=== PATIENT | female | born 1945 | race Caucasian/White ===

== ENCOUNTER 2018-05-07 11:11 | Inpatient (IN) | payer MEDICARE, OTHER ==
[~2018-05-07 11:11] MED LIST: MIDAZOLAM 1 MG/ML 2 ML INJ; NORepinephrine 8MG/250 ML BAG
[2018-05-07 11:44] LABS: ADD MAN DIFF? NO
[2018-05-07 11:48] LABS: WHITE BLOOD COUNT 3.2 10^3/ul (4.8-10.8)
[2018-05-07 11:48] LABS: ABNORMAL IP MESSAGE 1; BASOPHILS % 0.3 % (0.0-2.0); HEMATOCRIT 32.8 % (37.0-47.0); HEMOGLOBIN 11.1 g/dl (12.0-16.0); LYMPHOCYTES # 0.1 10^3/ul (0.8-2.9); LYMPHOCYTES % 2.8 % (15.0-51.0); MEAN CORPUSCULAR HEMOGLOBIN 30.2 pg (29.0-33.0); MEAN CORPUSCULAR HGB CONC 33.8 g/dl (32.0-37.0); MEAN CORPUSCULAR VOLUME 89.1 fl (82.0-101.0); MEAN PLATELET VOLUME 9.8 fl (7.4-10.4); MONOCYTES % 0.6 % (0.0-11.0); NEUTROPHIL # 2.4 10^3/ul (1.6-7.5); NEUTROPHILS % 75.7 % (39.0-77.0); PLATELET COUNT 130 10^3/UL (140-415); RED BLOOD COUNT 3.68 10^6/ul (4.20-5.40); RED CELL DISTRIBUTION WIDTH 14.6 % (11.5-14.5)
[2018-05-07 11:49] LABS: POSITIVE DIFF @See below
[2018-05-07] MEDS: SODIUM CHLORIDE 0.9% 1L BAG IV* (11:54)
[2018-05-07] MEDS: VANCOMYCIN 1 GM (PMX) 250 ML IVPB (11:55)
[2018-05-07 11:58] LABS: ADD UMIC YES; UR ASCORBIC ACID NEGATIVE (NEGATIVE); UR BACTERIA FEW /HPF (NONE SEEN); UR BILIRUBIN (Dip) NEGATIVE (NEGATIVE); UR BLOOD (Dip) 1+ mg/dL (NEGATIVE); UR CLARITY CLOUDY (CLEAR); UR COLOR AMBER (YELLOW); UR GLUCOSE (Dip) 3+ mg/dL (NEGATIVE); UR KETONES (Dip) TRACE mg/dL (NEGATIVE); UR LEUKOCYTE ESTERASE (Dip) 3+ Leu/ul (NEGATIVE); UR MUCUS FEW /HPF (NONE SEEN); UR NITRITE (Dip) NEGATIVE (NEGATIVE); UR NONSQUAMOUS EPITHELIAL CELL 1 /HPF (NONE SEEN); UR RBC 9 /HPF (0-5); UR TOTAL PROTEIN (Dip) 2+ mg/dl (NEGATIVE); UR UROBILINOGEN (Dip) NEGATIVE (NEGATIVE); UR WBC > 182 /HPF (0-5)
[2018-05-07 12:05] LABS: INR 1.22; PARTIAL THROMBOPLASTIN TIME 23.8 Sec (23.0-35.0); PROTIME 15.6 Sec (11.9-14.9); PT RATIO 1.2
[2018-05-07] MEDS: ONDANSETRON 4 MG INJ IV (12:06)
[2018-05-07] MEDS ORDERED: ACETAMINOPHEN 500 MG TAB PO (12:06)
[2018-05-07 12:08] LABS: ALANINE AMINOTRANSFERASE 137 IU/L (13-69); ALBUMIN 3.1 g/dl (3.3-4.9); ALKALINE PHOSPHATASE 538 IU/L (42-121); AMYLASE 330 U/L (11-123); ANION GAP 20 (5-13); ASPARTATE AMINO TRANSFERASE 258 IU/L (15-46); BILIRUBIN,INDIRECT 0.6 mg/dl (0-1.1); BLOOD UREA NITROGEN 27 mg/dl (7-20); CALCIUM 8.8 mg/dl (8.4-10.2); CARBON DIOXIDE 19 mmol/L (21-31); CHLORIDE 90 mmol/L (97-110); CREATININE 1.05 mg/dl (0.44-1.00); GLUCOSE 308 mg/dl (70-220); SODIUM 129 mmol/L (135-144); TOTAL PROTEIN 6.2 g/dl (6.1-8.1)
[2018-05-07 12:19] LABS: TROPONIN-I < 0.012 ng/ml (0.000-0.120)
[2018-05-07 12:22] LABS: LIPASE 2507 U/L (23-300)
[2018-05-07 12:26] LABS: POTASSIUM 2.9 mmol/L (3.5-5.1)
[2018-05-07 12:34] LABS: BAND NEUTROPHILS #M 0.4 10^3/ul (0.0-0.6); BAND NEUTROPHILS % (M) 14 % (0-4); BURR CELLS 1+ (0-0); ERYTHROBLAST% (NRBC) (M) 1 % (0-0); LYMPHOCYTES % (M) 1 % (15-51); PLATELET ESTIMATE DECREASED; POIKILOCYTOSIS 1+ (0-0); POLYCHROMASIA 1+ (0-0); SEG NEUT #M 2.7 10^3/ul (1.6-7.5); SEGMENTED NEUTROPHILS (M) % 85 % (39-77); TEAR DROP CELLS 1+ (0-0)
[2018-05-07] MEDS ORDERED: MIDAZOLAM (DRIP) 50 mg/50 mL 50 ML IV ×2 (12:41→16:00)
[2018-05-07] MEDS: ETOMIDATE 20 MG INJ IV (13:14)
[2018-05-07] MEDS: NORepinephrine 8MG/250 ML (PMX 250 ML IV ×3 (13:14→23:10)
[2018-05-07] MEDS: SUCCINYLCHOLINE CHLORIDE 100 MG/5 ML SYG IV (13:14)
[2018-05-07] MEDS: MIDAZOLAM (DRIP) 50 mg/50 mL 50 ML IV (13:14)
[2018-05-07] MEDS: FENTAnyl 50 MCG/ML VIAL IV ×2 (13:14→13:23)
[2018-05-07] MEDS: IBUPROFEN 600 MG TAB PO (13:23)
[2018-05-07 13:36] LABS: AADO2 Arterial 152.9 mmHg (7.0-24.0); Allen Test ACCEPTAB; Arterial Base Excess -11.3 mmol/L (-3.0-3); Arterial Blood Gas Oxygen Sat 99.1 mmHG (95.0-100.0); Arterial COHb 0.3 % (0.0-3.0); Arterial Fraction of Oxyhgb 98.6 % (93.0-99.0); Arterial MetHb 0.2 % (0.0-1.5); Arterial pCO2 20.7 mmhg (35-45); MODE VENT - AC; Site Right Radial
[2018-05-07] MEDS ORDERED: VANCOMYCIN IV PER PHARMACY XX (14:30)
[2018-05-07] MEDS ORDERED: DEXTROSE 50% 50 ML SYRINGE IV ×2 (14:30)
[2018-05-07] MEDS ORDERED: INSULIN HUMAN REGULAR 100 UNIT in SOD CHLORIDE 0.9% 99 ML IV (14:30)
[2018-05-07] MEDS: CEFEPIME 2GM/50 ML (PMX) 50 ML IVPB (14:59)
[2018-05-07] MEDS ORDERED: ACETAMINOPHEN 650 MG SUPP PR (15:12)
[2018-05-07] MEDS: POTASSIUM CHLORIDE 100 ML IVPB ×3 (15:23→21:30)
[2018-05-07] MEDS: SOD CHLORIDE 0.9% 1,000 ML IV (15:30)
[2018-05-07] MEDS: ACETAMINOPHEN 650 MG SUPP PR (15:33)
[2018-05-07] MEDS: IOHEXOL 300MG/ML 150 ML BTL (15:58)
[2018-05-07] MEDS: SOD CHLORIDE 0.9% 100 ML (15:58)
[2018-05-07] MEDS ORDERED: FENTAnyl (DRIP) 1000 mcg/100mL 100 ML IV (18:00)
[2018-05-07 18:22] LABS: ANION GAP 16 (5-13); BLOOD UREA NITROGEN 31 mg/dl (7-20); CALCIUM 7.5 mg/dl (8.4-10.2); CARBON DIOXIDE 14 mmol/L (21-31); CHLORIDE 99 mmol/L (97-110); CREATININE 1.19 mg/dl (0.44-1.00); GLUCOSE 158 mg/dl (70-220); POTASSIUM 3.1 mmol/L (3.5-5.1); SODIUM 129 mmol/L (135-144)
[2018-05-07] MEDS: MEROPENEM 1 GM/50ML(PMX) 50 ML IVPB (18:44)
[2018-05-07] MEDS: ACCU-CHEK XX ×3 (21:28→23:30)
[2018-05-07 23:08] LABS: ANION GAP 15 (5-13); BLOOD UREA NITROGEN 32 mg/dl (7-20); CALCIUM 7.6 mg/dl (8.4-10.2); CARBON DIOXIDE 15 mmol/L (21-31); CHLORIDE 99 mmol/L (97-110); GLUCOSE 138 mg/dl (70-220); POTASSIUM 3.6 mmol/L (3.5-5.1); SODIUM 129 mmol/L (135-144)
[2018-05-07] MEDS ORDERED: ATROPINE 1% 5 ML OPH SL (23:30)
[2018-05-07] MEDS: morphine (DRIP) 100 MG/100 ML 100 ML IV (23:40)
[2018-05-08] MEDS: LORAZEPAM 2 MG INJ IV (00:08)
[2018-05-08] MEDS: ACCU-CHEK XX (00:30)
[2018-05-08] MEDS ORDERED: VANCOMYCIN 750 MG in SOD CHLORIDE 0.9% 150 ML IVPB (06:00)
[2018-05-08] MEDS ORDERED: LEVOTHYROXINE 125 MCG TAB PO (07:00)
[2018-05-08] MEDS ORDERED: EPINEPHrine 0.1 MG/ML SYG (07:00)
[2018-05-08] MEDS ORDERED: ENOXAPARIN 40 MG/0.4 ML SYG SC (09:00)
== END 2018-05-08 04:26 | disposition expired | DRG 871 ==
LOC: E/R 11:11 → ICU 13:22
PROC: 0BH17EZ Insertion of Endotracheal Airway into Trachea, Via Natural or Artificial Opening (ICD-10-PCS; principal; 2018-05-07)
PROC: 5A1935Z Respiratory Ventilation, Less than 24 Consecutive Hours (ICD-10-PCS; 2018-05-07)
PROC: 06HY33Z Insertion of Infusion Device into Lower Vein, Percutaneous Approach (ICD-10-PCS; 2018-05-07)
DX: A41.9 Sepsis, unspecified organism (principal); R65.21 Severe sepsis with septic shock; J96.01 Acute respiratory failure with hypoxia; K85.90 Acute pancreatitis without necrosis or infection, unspecified; G92 Toxic encephalopathy; N10 Acute pyelonephritis; E87.1 Hypo-osmolality and hyponatremia; C79.81 Secondary malignant neoplasm of breast; C79.51 Secondary malignant neoplasm of bone; E87.2 Acidosis; L02.215 Cutaneous abscess of perineum; E87.6 Hypokalemia; E11.65 Type 2 diabetes mellitus with hyperglycemia; C51.9 Malignant neoplasm of vulva, unspecified; Z66 Do not resuscitate; B96.1 Klebsiella pneumoniae [K. pneumoniae] as the cause of diseases classified elsewhere; B96.20 Unspecified Escherichia coli [E. coli] as the cause of diseases classified elsewhere; B95.2 Enterococcus as the cause of diseases classified elsewhere; Z79.4 Long term (current) use of insulin; Z96.642 Presence of left artificial hip joint; M84.559D Pathological fracture in neoplastic disease, hip, unspecified, subsequent encounter for fracture with routine healing
CPT/HCPCS: 31500; 36415; 36600; 71045; 74178; 80048; 80053; 81001; 82150; 82803; 82962; 83605; 83690; 84484; 85025; 85610; 85730; 87040; 87081; 87086; 93005; 93306; 94002; 94003; 96365; 96375; 99291-25